=== PATIENT | male | born 1945 | race Caucasian/White ===

== ENCOUNTER 2025-01-08 00:23 | Observation (INO) | payer MEDICARE, SELFPAY ==
[2025-01-08] VITALS (26 sets, daily range): BP systolic 138–194; BP diastolic 42–99; PULSE 67–97; RESP 12–20; TEMP 36.3–37.2; O2SAT 96–100; BMI 24.3; BMI 23.3
--- NOTE | 2025-01-08 | XR_ITS ---
MRI abdomen, without contrast. MRCP Date and time of exam: January 08, 2025 at 12:28 PM INDICATIONS: Abdominal pain elevated lipase mid abdominal pain beginning 3 days ago Technique: Multiple axial and coronal images of the abdomen have been obtained with the Siemens 1.5T MRI scanner. Images obtained included T1 weighted transverse images, T2-weighted transverse images, T2-weighted transverse images fat-suppressed, T2 weighted haste fat suppressed transverse images, T1 weighted images, in and out of phase images, T2-weighted coronal images, breath hold, T2 weighted haze coronal images as well as T2 weighted coronal thick slab images, MRCP. Findings: No intrahepatic biliary tract dilatation No gallstones Gallbladder wall is not thickened Normal common hepatic duct common bile duct no stones Pancreatic duct is not dilated No peripancreatic mass Spleen is not enlarged No ascites Aorta normal size 20 mm calculus in the left renal pelvis with minimal left hydronephrosis IMPRESSION: Negative for cholelithiasis, negative for cholecystitis Normal common hepatic common bile duct Negative for pancreatitis 20 mm calculus in the left renal pelvis with minimal left hydronephrosis
--- NOTE | 2025-01-08 01:18 | PD.EDRME ---
Rapid Medical Screening Exam RME Arrival date/time: 01/08/25 00:23 Time Seen by Provider: 01/08/25 00:47 Vital signs: Vital Signs Temperature 97.7 F 01/08/25 00:30 Pulse Rate 97 01/08/25 00:30 Respiratory Rate 20 01/08/25 00:30 Blood Pressure 194/82 H 01/08/25 00:30 Pulse Oximetry (%) 96 01/08/25 00:30 Oxygen Delivery Method Nasal Cannula 01/08/25 00:30 Oxygen Flow Rate 5 01/08/25 00:30 Vital signs reviewed by provider: Yes RME Narrative: 79 yo with with chest pain that started 5 hours prior to arrival. A medical screening exam has been performed on this patient. Labs will be sent EKG and chest x-ray will be ordered. A ED provider will make a final evaluation follow her labs and disposition for this patient.
--- NOTE | 2025-01-08 01:59 | EKG_ITS ---
[facility] Test Date: 2025-01-08 Pat Name: SHAKILA PATTEN Department: Room: - Gender: Male [employer]: : 1945 Requested By: Jaci Dudley Order Number: [id number] Reading MD: Jaci Dudley Measurements Intervals [place] Rate: 91 P: 46 NM: 160 QRS: 16 QRSD: 89 T: -2 QT: 358 QTc: 441 Interpretive Statements SINUS RHYTHM MODERATE ST DEPRESSION [0.05+ mV ST DEPRESSION] No previous ECG available for comparison /store/S0/[id number].pdf
--- NOTE | 2025-01-08 02:00 | XR_ITS ---
Examination: CT abdomen with intravenous contrast CT pelvis with intravenous contrast 2-D coronal reconstructions 2-D sagittal reconstructions Date and time of exam:January 08 70,025, 0416 hours INDICATIONS: Onset abdominal pain today.. CTDI: vol (mGy) 9.82. DLP: (mGycm) 577. Technique: Multiple axial sections of the abdomen and pelvis have been obtained. 64 slice high-resolution scanner used. 3 mm axial sections have been obtained, post intravenous injection of 60 cc Isovue-370. 2-D sagittal, coronal reconstructions obtained. Low dose protocols were performed. One or more of the following dose reduction techniques were used; automated exposure control, adjustment of the mA and/or KV according to patient size, use of iterative reconstruction technique. Findings: Atelectasis versus pneumonia both lung bases Retrocardiac gastric hernia Liver cysts Distended gallbladder 21 mm calculus in the left renal pelvis with minimal left hydronephrosis Moderate renal parenchymal scar formation No bowel obstruction Small calculi in the urinary bladder Mild prostatomegaly Severe osteopenia with chronic compression T12 Small fat-containing left inguinal hernia IMPRESSION: 21 mm calculus in the left renal pelvis with minimal left hydronephrosis
--- NOTE | 2025-01-08 02:01 | XR_ITS ---
Examination: AP chest single view TECHNIQUE: AP portable semiupright chest single view Date and time: January 08, 2025 0215 hours Comparison April 10, 2021 INDICATIONS: Abdominal pain today. FINDINGS: Scarring versus pneumonia left base Right lung clear Mild prominence left ventricle Prominent osteopenia IMPRESSION: Scarring versus pneumonia left base, clinical correlation advised
--- NOTE | 2025-01-08 03:14 | PC.NURSE ---
WE HAD DOWN TIME FROM [id number].
[2025-01-08 03:31] LABS: Alanine Aminotransferase 17 U/L (10-49); Albumin, Serum 3.9 gm/dL (3.4-4.8); Albumin/Globulin Ratio 1.6 (1.2-2.2); Alkaline Phosphatase 69 U/L (46-116); Anion Gap 7 (7-16); BUN/Creatinine Ratio 19 Ratio (12-20); Bilirubin,Total 1.8 mg/dL (0.3-1.2); Blood Urea Nitrogen 19 mg/dL (9-23); Calcium 8.8 mg/dL (8.3-10.6); Calcium (Corrected) 8.9 mg/dL (8.5-10.1); Carbon Dioxide 25.0 mMol/L (20.0-31.0); Chloride 107 mMol/L (98-107); Creatinine (Component) 1.0 mg/dL (0.6-1.3); Estimated Creatinine Clearance 59.9 mL/min (>60); Globulin 2.5 gm/dL (2.3-3.5); Glucose 116 mg/dL (74-106); Lipase 318 U/L (12-53); Magnesium 1.8 mg/dL (1.6-2.6); Osmolality,Calculated 280 (275-295); Potassium 4.1 mMol/L (3.4-5.1); Sodium 139 mMol/L (136-145); Total Protein 6.4 gm/dL (5.7-8.2); Troponin I < 0.020 ng/mL (0.0-0.045); eGFR > 60 See Note
[2025-01-08 03:37] LABS: Basophils # (Auto) 0.1 Thou/mm3 (0.0-0.2); Basophils % (Auto) 0 % (0-2.5); Eosinophils # (Auto) 0.1 Thou/mm3 (0.0-0.5); Eosinophils % (Auto) 1 % (0-10); Hematocrit 47.7 % (41.0-53.0); Hemoglobin 16.7 g/dL (13.5-16.0); Immature Granulocytes Auto 0.07 Thou/mm3 (0.00-0.00); Lymphocytes # (Auto) 0.8 Thou/mm3 (1.0-4.8); Lymphocytes % (Auto) 7 % (10-50); Mean Corpuscular HGB Conc 35.0 g/dl (31.0-37.0); Mean Corpuscular Hemoglobin 29.7 pg (25.0-35.0); Mean Corpuscular Volume 85 fL (80-100); Monocytes # (Auto) 1.0 Thou/mm3 (0.0-0.8); Monocytes % (Auto) 8 % (0-12); Neutrophils # (Auto) 9.8 Thou/mm3 (1.8-7.7); Neutrophils % (Auto) 83 % (37-80); Nucleated Red Blood Cell # 0.00 Thou/mm3 (0.00-0.00); Nucleated Red Blood Cell % 0 /100 WBC (0); Platelet Count 192 Thou/mm3 (140-440); RDW Standard Deviation 41.9 fL (35.1-43.9); Red Blood Count 5.62 Miln/mm3 (4.50-5.90); White Blood Count 11.9 Thou/mm3 (3.8-10.6)
[2025-01-08 03:52] LABS: INR 1.0 (0.9-1.3); Partial Thromboplastin Time 31.1 Seconds (22.0-36.0); Prothrombin Time 11.4 Seconds (9.0-12.2)
[2025-01-08 03:59] LABS: B-Type Natriuretic Peptide < 20 pg/mL (0-100)
[2025-01-08] MEDS: ONDANSETRON INJ 2 MG/ML INJ 2 ML 4 MG IVP (04:04)
[2025-01-08 04:16] LABS: Aspartate Amino Transferase 101 U/L (0-34)
[2025-01-08 05:02] LABS: Collection Type, Urine Voided; Squamous Epithelial Cell,Urine 0 /hpf (0-5)
[2025-01-08 05:26] LABS: Bilirubin,Urine Negative (Negative); Blood,Urine 1+ (Negative); Clarity,Urine Clear (Clear/Hazy); Color,Urine Yellow (Lt Yel-Yel); Glucose, Urine Negative (Negative); Hyaline Casts,Urine < 1 /hpf (0-1); Ketones,Urine Trace (Negative); Leukocyte Esterase,Urine Positive (Negative); Nitrite,Urine Negative (Negative); PH,Urine 6.5 (5.0-7.0); Protein,Urine 1+ (Neg - Trace); RBC,Urine 53 /hpf (0-3); Specific Gravity,Urine 1.017 (1.001-1.035); Urobilinogen,Urine Negative mg/dL (0.0-1.0); WBC,Urine 41 /hpf (0-5)
--- NOTE | 2025-01-08 05:34 | PRELIM_ITS ---
CT scan of the abdomen and pelvis with intravenous contrast (axial sections with sagittal and coronal reformats). January 08, 2025 0416 hours Clinical History: 79-year-old with abdominal pain Comparison: No prior CT. Findings: Few scattered cystlike hypodensities noted within the liver. The gallbladder is mildly distended. The spleen, pancreas and adrenals are unremarkable. There is nonspecific bilateral perinephric stranding. There is a 2.1 cm obstructing calculus within the left renal pelvis with mild left hydronephrosis. Tiny nonobstructive nephrolith noted within the upper pole of the right kidney. Few tiny cortical cystlike hypodensities noted in the right kidney. There is lobular contour of the kidneys suggested scarring either from prior infection or prior ischemia. Urinary bladder is of normal partially filled configuration. There is some dependent intraluminal calcification/calculi within the urinary bl adder. Prostate is not enlarged. There are pelvic fluids. There is a large hiatus hernia with layering fluid within the hiatus hernia as well as within the distal esophagus. There is also layering fluid within the stomach. There is no bowel obstruction. Appendix is normal. There is no free intraperitoneal air or fluid. There is no abdominal or pelvic lymphadenopathy. There are vascular calcifications along the abdominal aorta and branch vessels. Small fat- containing left inguinal hernia suggested. There are coronary artery calcifications. There is bibasilar subsegmental atelectasis. There is osteopenia but there is no acute osseous abnormal. There is old severe T12 compression fracture. Impression: 1. 2.1 cm obstructing calculus within the left renal pelvis with mild left hydronephrosis.. Superimposed infectious pyelitis is not excluded. 2. Lobular contour of the kidney suggesting scarring either from prior infection or prior ischemia. 3. Dependent intraluminal calcification/calculi within the urinary bladder. 4. Large hiatus hernia. Distended fluid-filled distal esophagus. 5. Small fat-containing left inguinal hernia. 6. Old severe T12 compression fracture. Report Electronically Signed By: Homer Wray 01/08/2025 5:33:33 AM [EST]
--- NOTE | 2025-01-08 06:24 | PC.NURSE ---
new linen change. vs taken. assisted pt with urinal.
--- NOTE | 2025-01-08 07:07 | EDNOTE_ITS ---
ED Abdominal Pain RME/HPI General Chief Complaint: Abdominal Pain Stated complaint: ABDOMINAL PAIN Time seen by provider: 01/08/25 00:47 Arrival date/time: 01/08/25 00:23 RME / HPI RME / HPI narrative: 79 yo with with chest pain that started 5 hours prior to arrival. A medical screening exam has been performed on this patient. Labs will be sent EKG and chest x-ray will be ordered. A ED provider will make a final evaluation follow her labs and disposition for this patient. DR. AMAYA MAIN ED EVALUATION 79 year old male patient with history of Parkinson's disease and hypertension presents to the ED BIBA from home for evaluation of abdominal pain beginning last night. Described as sharp stabbing in sensation, localized to the epigastric and umbilical region, without radiation. Rating 8/10 in severity. Additionally complains of a mild cough. Denies fevers, chills, sweats. Denies chest pain or shortness of breath. Denies nausea, vomiting, diarrhea, constipation. Denies dysuria, urinary frequency and urgency. Related Data Home Medications ?Medication ?Instructions ?Recorded ?Confirmed atenolol 50 mg tablet (Tenormin) 50 mg PO QAM #0 tabs 12/13/16 06/09/19 tramadol 50 mg tablet (Ultram) 50 mg PO Q4HR PRN PAIN #0 tabs 12/13/16 06/09/19 Previous Rx's ?Medication ?Instructions ?Recorded acetaminophen 300 mg-codeine 30 mg 1 tab PO TID PRN pa in #21 tabs 04/10/21 tablet lidocaine 5 % topical patch 1 patch topical QDAY #15 e a 04/10/21 hydrocodone 5 mg-acetaminophen 325 1 tab PO Q8H PRN pa in #14 tabs 04/17/23 mg tablet Allergies Allergy/AdvReac Type Severity Reaction Status Date / Time NKA* Allergy Uncoded 12/16/16 20:51 Review of Systems Review of Systems Systems Reviewed: All systems reviewed, normal except as documented Past Medical History Past Medical History NEUROLOGIC: Positive Neurological Disorders CARDIAC: Positive Hypertension; Negative Cardiac Disorders or Congestive Heart Failure RESPIRATORY: Positive Asthma; Negative Chronic Obstructive Pulmonary Disease (COPD) GENITOURINARY: Positive Renal Disease ENDOCRINE: Negative Diabetes Mellitus Type 1 or Diabetes Mellitus Type 2 HEMATOLOGIC: Negative Sickle Cell Disease Social History SMOKING STATUS: Never smoker SUBSTANCE USE: does not use ED Exam Narrative Physical exam: GENERAL APPEARANCE: alert and oriented x 4, well-developed, well-nourished, no acute distress HEENT: Normocephalic, atraumatic; pupils equal, round, reactive to light; EOMI; mucous membranes pink, moist; oropharynx clear NECK: Supple LUNGS: CTABL; no wheezes, no rales, no rhonchi HEART: Regular rate, regular rhythm; normal S1, S2; no murmurs ABDOMEN: mild distended; normal BS; soft, no tenderness, no guarding, no rebound; no masses, no organomegaly, no hernia BACK: no CVA tenderness EXTREMITIES: atraumatic; no edema NEUROLOGIC: awake; alert and oriented x4; cranial nerves II-XII grossly intact; no focal sensory or motor deficits PSYCHIATRIC: appropriate mood and affect SKIN: warm, dry, normal color; no rashes Course Quality Measures none Orders Category Date Time Status CT Screening NOW Care 01/08/25 02:00 Active EKG (ED ONLY) *Do not use* NOW Care 01/08/25 01:59 Completed Insert IV STAT Care 01/08/25 01:59 Active MRI Screening NOW Care 01/08/25 08:06 Active Referral - Screw Machine Set Up Operator Tool Stat Cons 01/08/25 14:29 Active Diet Regular Diet 01/08/[address] abdomen pelvis w con Stat Exams 01/08/25 02:00 Completed CXRP [XR chest 1V portable] Stat Exams 01/08/25 02:01 Completed EKG (ED Only) Stat Exams 01/08/25 01:59 Draft MR MRCP Stat Exams 01/08/25 Completed BNP [B-Type Natriuretic Peptide] Stat Lab 01/08/25 02:14 Completed CBC Stat Lab 01/08/25 02:14 Completed COVID-19 Antigen (In-House) Stat Lab 01/08/25 Ordered Comprehensive Metabolic Panel Stat Lab 01/08/25 02:14 Completed Lipase Stat Lab 01/08/25 02:14 Completed Magnesium Stat Lab 01/08/25 02:14 Completed Partial Thromboplastin Time Stat Lab 01/08/25 02:14 Completed Prothrombin Time with INR Stat Lab 01/08/25 02:14 Completed Troponin I Stat Lab 01/08/25 02:14 Completed Urinalysis Stat Lab 01/08/25 04:00 Completed Ondansetron Inj [Zofran Inj] Med 01/08/25 01:59 Active 4 mg IVP Q1H PRN Piper/Tazo 3.375 gm Premix [Zosyn] Med 01/08/25 08:06 Discontinued 3.375 gm in 50 ml IV X1 Reevaluation(s) Reevaluation #1: Patient reports his pain has improved. Time: 07:08 Vital Signs Vital signs: Vital Signs Temperature 97.7 F 01/08/25 00:30 Pulse Rate 97 01/08/25 00:30 Respiratory Rate 20 01/08/25 00:30 Blood Pressure 194/82 H 01/08/25 00:30 Pulse Oximetry (%) 96 01/08/25 00:30 Oxygen Delivery Method Nasal Cannula 01/08/25 00:30 Oxygen Flow Rate 5 01/08/25 00:30 Abdominal Pain MDM MDM Narrative MDM Narrative:: Carmen Masters am scribing for and in the presence of Dr. Amaya. 1800: Patient signed out to Dr. Ortiz pending transfer for urology services. Patient data External records reviewed:: [facility] previous records (I reviewed ED visit on 04/16/2023 ) and EMS form Clinical information provided by:: patient Social determinants that could affect healthcare access:: none Patient has the following chronic illnesses:: Parkinson's disease and hypertension How is presenting disease/condition affected by chronic disease/condition?: uneffected by Evaluation data The following diagnostics were reviewed and interpreted by me:: lab results, radiology exam(s) and EKG tracing(s) (01/08/2025 @ 03:40 AM. Sinus rhythm, rate 91, no acute ischemic changes. ) Lab and/or radiology exams considered but not ordered:: None Interpretation Summary: Ordering Physician: Jaci Ortiz MD Date of Service: 01/08/25 Procedure(s): CT abdomen pelvis w con Accession Number(s): [id number] cc: Ranulfo Portillo MD; NO PRIMARY/FAMILY,PHYSICIAN; Jaci Ortiz MD~ Examination: CT abdomen with intravenous contrast CT pelvis with intravenous contrast 2-D coronal reconstructions 2-D sagittal reconstructions Date and time of exam:January 08 70,025, 0416 hours INDICATIONS: Onset abdominal pain today.. CTDI: vol (mGy) 9.82. DLP: (mGycm) 577. Technique: Multiple axial sections of the abdomen and pelvis have been obtained. 64 slice high-resolution scanner used. 3 mm axial sections have been obtained, post intravenous injection of 60 cc Isovue-370. 2-D sagittal, coronal reconstructions obtained. Low dose protocols were performed. One or more of the following dose reduction techniques were used; automated exposure control, adjustment of the mA and/or KV according to patient size, use of iterative reconstruction technique. Findings: Atelectasis versus pneumonia both lung bases Retrocardiac gastric hernia Liver cysts Distended gallbladder 21 mm calculus in the left renal pelvis with minimal left hydronephrosis Moderate renal parenchymal scar formation No bowel obstruction Small calculi in the urinary bladder Mild prostatomegaly Severe osteopenia with chronic compression T12 Small fat-containing left inguinal hernia IMPRESSION: 21 mm calculus in the left renal pelvis with minimal left hydronephrosis Dictated By: Ranulfo Portillo MD Signed By: <Electronically signed by Ranulfo Portillo MD in OV>01/08/25 0754 Ordering Physician: Philly Amaya MD Date of Service: 01/08/25 Procedure(s): MR MRCP Accession Number(s): [id number] cc: Ranulfo Portillo MD; NO PRIMARY/FAMILY,PHYSICIAN; Philly Amaya MD~ MRI abdomen, without contrast. MRCP Date and time of exam: January 08, 2025 at 12:28 PM INDICATIONS: Abdominal pain elevated lipase mid abdominal pain beginning 3 days ago Technique: Multiple axial and coronal images of the abdomen have been obtained with the Siemens 1.5T MRI scanner. Images obtained included T1 weighted transverse images, T2-weighted transverse images, T2-weighted transverse images fat-suppressed, T2 weighted haste fat suppressed transverse images, T1 weighted images, in and out of phase images, T2-weighted coronal images, breath hold, T2 weighted haze coronal images as well as T2 weighted coronal thick slab images, MRCP. Findings: No intrahepatic biliary tract dilatation No gallstones Gallbladder wall is not thickened Normal common hepatic duct common bile duct no stones Pancreatic duct is not dilated No peripancreatic mass Spleen is not enlarged No ascites Aorta normal size 20 mm calculus in the left renal pelvis with minimal left hydronephrosis IMPRESSION: Negative for cholelithiasis, negative for cholecystitis Normal common hepatic common bile duct Negative for pancreatitis 20 mm calculus in the left renal pelvis with minimal left hydronephrosis Dictated By: Ranulfo Portillo MD Signed By: <Electronically signed by Ranulfo Portillo MD in OV>01/08/25 1317 ======= ===== Ordering Physician: Jaci Ortiz MD Date of Service: 01/08/25 Procedure(s): XR chest 1V portable Accession Number(s): [id number] cc: Ranulfo Portillo MD; NO PRIMARY/FAMILY,PHYSICIAN; Jaci Ortiz MD~ Examination: AP chest single view TECHNIQUE: AP portable semiupright chest single view Date and time: January 08, 2025 0215 hours Comparison April 10, 2021 INDICATIONS: Abdominal pain today. FINDINGS: Scarring versus pneumonia left base Right lung clear Mild prominence left ventricle Prominent osteopenia IMPRESSION: Scarring versus pneumonia left base, clinical correlation advised Dictated By: Ranulfo Portillo MD Signed By: <Electronically signed by Ranulfo Portillo MD in OV> 01/08/25 0922 Medications / Prescriptions Medications or Prescriptions considered but not ordered:: None Medication administrations:: Medication Administration History Ondansetron HCl (Ondansetron Inj 2 Mg/Ml Inj 2 Ml) 4 mg IVP Q1H PRN PRN Reason: PERSISTENT NAUSEA OR VOMITING Last Admin: 01/08/25 04:04 Dose: 4 mg Documented By: SM Discontinued Medications Piperacillin/Tazobactam/Dextrose (Zosyn) 3.375 gm in 50 mls @ 100 mls/hr IV X1 ONE Stop: 01/08/25 08:35 Last Infusion: 01/08/25 08:47 Dose: Infused Documented By: Admin: 01/08/25 08:17 Dose: 100 mls/hr Documented By: ER See above Consultations Consultation(s) initiated? (list below): No Diagnosis Differential diagnosis abdominal pain: abdominal pain, calculus of kidney, constipation, diverticulitis, gastroenteritis and pancreatitis Most likely diagnosis given after review of the tests above:: Left renal pelvis calculus Left hydronephrosis Admission Indicated Admission indicated?: not indicated Explain why admission is indicated or not indicated:: Patient signed out pending final disposition. Admission Request Was there a request for admission?: No Disposition Plan Disposition Plan: other (specify) (Patient signed out to Dr. Ortiz pending transfer for urology services. ) Discharge Plan Prescriptions/Referrals Prescriptions/Med Rec: No Action tramadol [Ultram] 50 MG tablet 50 mg PO Q4HR PRN (Reason: PAIN) Qty: 0 Patient Comments: FOR PAIN, NOT TO EXCEED 8 TABS IN 24 HRS atenolol [Tenormin] 50 MG tablet 50 mg PO QAM Qty: 0 acetaminophen-codeine 300-30 mg tablet 1 tab PO TID PRN (Reason: pain) Qty: 21 0RF lidocaine 5 % adhesive patch,medicated 1 patch topical QDAY Qty: 15 0RF Rx Instructions: leave on most painful area for up to 12 hrs hydrocodone-acetaminophen 5-325 mg tablet 1 tab PO Q8H MDD 3 tabs PRN (Reason: pain) Qty: 14 0RF Referrals: No Primary/Family,Physician [Primary Care Provider] - In 1 week Problem List Clinical Impression: Hydronephrosis, left, Stone in renal pelvis Patient/Caregiver Discharge Instructions Print Language: [place]
--- NOTE | 2025-01-08 07:40 | PC.NURSE ---
Patient awake A&O X3, denies pain or discomfort at this time. POC updated.
[2025-01-08] MEDS: PIPER/TAZO 3.375 GM PREMIX 3.375 GM/50 ML BAG IV (08:17)
--- NOTE | 2025-01-08 15:54 | PC.CM ---
Addendum entered by Demetria Bowman RN 01/08/25 18:46: 1945 [facility] transfer nurse Guillermina called me and she wanted to seak to Dr. Holloway. I transferred call to ED. Addendum entered by Demetria Bowman RN 01/08/25 18:40: I sent information to [facility]. Addendum entered by Demetria Bowman RN 01/08/25 18:29: [facility]15 [facility] Transfer nurse states they are still working on the transfer. Please disregard entry at 1645. Wrong patient. Addendum entered by Demetria Bowman RN 01/08/25 16:53: 1645 Mingo GONZALEZ called and wanted to know what was going on with patient. I let him know [facility] [place] is reviewing patient at this time. Addendum entered by Demetria Bowman RN 01/08/25 16:45: 1620 I received a call back from Guillermina arceo form [facility]. She took a complete report from me on patient. She states they will review everything and get back to us. Addendum entered by Demetria Bowman RN 01/08/25 16:27: 1550 I spoke to the transfer center at [facility] and we discussed need for transfer. She took information on patient and she stats she will have a nurse call back for more information. Original Note: 1530 I faxed information to [facility] in [place]. I started packet and I will made a CD. 1500 I received a referral to transfer patient for urology services.
--- NOTE | 2025-01-08 16:27 | PC.NURSE ---
POC updated patient denies pain at this time.
--- NOTE | 2025-01-08 17:59 | EDNOTE_ITS ---
Emergency Room Addendum <Jaci Ortiz MD - Last Filed: 01/08/25 20:08> Addendum Narrative: [address] Amaya (emergency physician). Past medical, surgical, social and family history reviewed. Vitals and home medications reviewed. Results and treatment plan discussed. I will assume the care of the patient at this time and will follow the patient, pending transfer for urology services. Please refer to the emergency department record for history and examination from initial visit. 1814: At signout the patient was still pending a call from [facility]. The patient wanted something to eat and we gave him a trial and he started having abdominal pain. Repeat abdominal exam shows no rebound. Morphine is given. The call came in from Dr. Whyte, urology from [facility], ([phone]. This is his outpatient office number). They feel that the patient does not need urological transfer and/or intervention while in the hospital. The patient does not need to be transferred. He reports that the patient can be seen as an outpatient. The patient needs to call the office number and get seen for an outpatient referral. Discussed with Dr. Wayne who will let the 7 PM doctor know that the patient can be admitted. Dr. Ortiz?s Main ED Evaluation: 79-year-old male with a history of Parkinson?s disease and hypertension was signed out to me for continued evaluation and management of acute-onset abdominal pain. He presented from home via EMS with pain described as sharp and stabbing, localized to the epigastric and periumbilical regions, rated 8/10 in intensity, and non-radiating. He also endorsed a mild non-productive cough but denied fevers, chills, chest pain, shortness of breath, nausea, vomiting, diarrhea, constipation, or urinary symptoms. On reassessment, patient remained hemodynamically stable and nontoxic-appearing. Pain was unchanged. Evaluation data The following diagnostics were reviewed and interpreted by me: radiology exam(s) Interpretation Summary: I personally reviewed the radiology results and agree with the radiologist?s interpretation #CT Abdomen/Pelvis with IV Contrast (01/08/25 at 0416 hrs): Findings: Atelectasis versus pneumonia both lung bases Retrocardiac gastric hernia Liver cysts Distended gallbladder 21 mm calculus in the left renal pelvis with minimal left hydronephrosis Moderate renal parenchymal scar formation No bowel obstruction Small calculi in the urinary bladder Mild prostatomegaly Severe osteopenia with chronic compression T12 Small fat-containing left inguinal hernia IMPRESSION: 21 mm calculus in the left renal pelvis with minimal left hydronephrosis #MRCP (01/08/25 at 1228 hrs): Findings: No intrahepatic biliary tract dilatation No gallstones Gallbladder wall is not thickened Normal common hepatic duct common bile duct no stones Pancreatic duct is not dilated No peripancreatic mass Spleen is not enlarged No ascites Aorta normal size 20 mm calculus in the left renal pelvis with minimal left hydronephrosis IMPRESSION: Negative for cholelithiasis, negative for cholecystitis Normal common hepatic common bile duct Negative for pancreatitis 20 mm calculus in the left renal pelvis with minimal left hydronephrosis #Chest X-ray, 1V Portable (01/08/25 at 0215 hrs): FINDINGS: Scarring versus pneumonia left base Right lung clear Mild prominence left ventricle Prominent osteopenia IMPRESSION: Scarring versus pneumonia left base, clinical correlation advised <Josee Danya - Last Filed: 01/08/25 20:45> Addendum Narrative: [address] Amaya (emergency physician). Past medical, surgical, social and family history reviewed. Vitals and home medications reviewed. Results and treatment plan discussed. I will assume the care of the patient at this time and will follow the patient, pending transfer for urology services. Please refer to the emergency department record for history and examination from initial visit. 5: At signout the patient was still pending a call from [facility]. The patient wanted something to eat and we gave him a trial and he started having abdominal pain. Repeat abdominal exam shows no rebound. Morphine is given. The call came in from Dr. Whyte, urology from [facility], #[phone] (this is his outpatient office number). They feel that the patient does not need urological transfer and/or intervention while in the hospital. The patient does not need to be transferred. He reports that the patient can be seen as an outpatient. The patient needs to call the office number and get seen for an outpatient referral. Discussed with Dr. Wayne who will let the 7PM doctor know that the patient can be admitted. Re-evaluation: 79-year-old male with a history of Parkinson?s disease and hypertension was signed out to me for continued evaluation and management of acute-onset abdominal pain. He presented from home via EMS with pain described as sharp and stabbing, localized to the epigastric and periumbilical regions, rated 8/10 in intensity, and non-radiating. He also endorsed a mild non-productive cough but denied fevers, chills, chest pain, shortness of breath, nausea, vomiting, diarrhea, constipation, or urinary symptoms. On reassessment, patient remained hemodynamically stable and nontoxic-appearing. Pain was unchanged. Evaluation data The following diagnostics were reviewed and interpreted by me: radiology exam(s) Interpretation Summary: I personally reviewed the radiology results and agree with the radiologist?s interpretation #CT Abdomen/Pelvis with IV Contrast (01/08/25 at 0416 hrs): Findings: Atelectasis versus pneumonia both lung bases Retrocardiac gastric hernia Liver cysts Distended gallbladder 21 mm calculus in the left renal pelvis with minimal left hydronephrosis Moderate renal parenchymal scar formation No bowel obstruction Small calculi in the urinary bladder Mild prostatomegaly Severe osteopenia with chronic compression T12 Small fat-containing left inguinal hernia IMPRESSION: 21 mm calculus in the left renal pelvis with minimal left hydronephrosis #MRCP (01/08/25 at 1228 hrs): Findings: No intrahepatic biliary tract dilatation No gallstones Gallbladder wall is not thickened Normal common hepatic duct common bile duct no stones Pancreatic duct is not dilated No peripancreatic mass Spleen is not enlarged No ascites Aorta normal size 20 mm calculus in the left renal pelvis with minimal left hydronephrosis IMPRESSION: Negative for cholelithiasis, negative for cholecystitis Normal common hepatic common bile duct Negative for pancreatitis 20 mm calculus in the left renal pelvis with minimal left hydronephrosis #Chest X-ray, 1V Portable (01/08/25 at 0215 hrs): FINDINGS: Scarring versus pneumonia left base Right lung clear Mild prominence left ventricle Prominent osteopenia IMPRESSION: Scarring versus pneumonia left base, clinical correlation advised Attestation <Rigoberto Hagan - Last Filed: 01/08/25 20:45> Attestation Scribe Attestation: I, Obi Hagan, am scribing for and in the presence of Dr. Ortiz. Provider Notation: Although this document has been carefully reviewed, there may still be some phonetic and other typographical errors. These errors are purely grammatical due to imperfections in the software program and should not be construed in any way to compromise the substance of the patient's medical care during this visit.
--- NOTE | 2025-01-08 20:05 | PD.RESHP ---
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 Patient's is also bedside and provides some history regarding the patient's condition. Patient was apparently scheduled for PASSENGER [employer]GE [employer] shunt modification on 01/09 send however, started developing abdominal pain radiating to his flank area this morning which prompted him to come to the emergency room. Patient denies any fever/chills, diarrhea, vomiting, nausea, chest pain or shortness of breath. Patient denies any recent sick contacts, travel or any other concerning symptoms at this time. Medical history: As stated above Surgical history: Medication placement Allergies: NKDA Medications: Atenolol which he apparently takes when needed, carbidopa-levodopa, methocarbamol Family history: Noncontributory Social history: Patient lives with his , currently mostly bedbound, denies any alcohol, illicit drug or tobacco use. ROS: All 12 systems assessed and the patient denies unless otherwise stated in HPI. In the ED, patient presented hypertensive blood pressure 194/82, mildly tachycardic with a heart rate 97, initially requiring 5 L nasal cannula but is now currently on room air satting 96. Pertinent lab findings included WBC 11.9, hemoglobin 16.7 with MCV of 85, magnesium 1.8, T. bili 1.8, AST 101, troponin within normal limits, BNP less than 20, lipase of 318, urinalysis showed no signs of bacteria. MRCP was negative for cholelithiasis, cholecystitis, normal common hepatic, common bile duct, negative for pancreatitis but there was noted 20 mm calculus in the left renal pelvis with minimal left hydronephrosis, CT abdomen confirmed findings, chest x-ray showed scarring versus pneumonia in the left base and EKG showed sinus rhythm with no concerning ST changes noted. Patient will be admitted for IV fluid resuscitation and pain management for minimally obstructing 20 mm calculus in the left renal pelvis with urology consultation for further management. Exam Vital Signs Temp Pulse Resp BP Pulse Ox O2 Del Method O2 Flow Rate 98.9 F 79 12 161/72 H 96 Room Air 2 01/08/25 19:00 01/08/25 19:00 01/08/25 19:00 01/08/25 19:00 01/08/25 19:00 01/08/25 19:00 01/08/25 16:00 Narrative Exam Physical Exam: GENERAL: Awake, answering questions appropriately but slowly, appears stated age HEENT: NC/AT. Moist mucosa. PERRLA/EOMI. CARDIO: Heart RRR, no obvious murmurs, no JVD. PULM: No coughing or visible SOB. Lungs CTA B/L. GI: Abdomen soft, mildly tender to palpation in the right upper quadrant otherwise unremarkable, no guarding or rebound tenderness. Bowel sounds noted SKIN/MSK/EXT: No wounds/discoloration/rashes/edema/amputations. +Pedal pulses present B/L. NEURO: Oriented x3, Moves extremities x4 with slight rigidity and bradykinesia, no focal neurologic deficits noted Results: Labs 01/08/25 02:14 01/08/25 02:14 Labs: Short CBC 01/08/25 Range/Units 02:14 WBC 11.9 H (3.8-10.6) Thou/mm3 Hgb 16.7 H (13.5-16.0) g/dL Hct 47.7 (41.0-53.0) % Plt Count 192 (140-440) Thou/mm3 BMP 01/08/25 02:14 Sodium 139 Potassium 4.1 Chloride 107 Carbon Dioxide 25.0 BUN 19 Creatinine 1.0 Glucose 116 H Calcium 8.8 Cardiac Enzymes 01/08/25 Range/Units 02:14 Troponin I < 0.020 (0.0-0.045) ng/mL Liver Function 01/08/25 Range/Units 02:14 Total Bilirubin 1.8 H (0.3-1.2) mg/dL AST 101 H (0-34) U/L ALT 17 (10-49) U/L Alkaline Phosphatase 69 (46-116) U/L Albumin 3.9 (3.4-4.8) gm/dL Urine 01/08/25 Range/Units 04:00 Urine Color Yellow (Lt Yel-Yel) Urine Clarity Clear (Clear/Hazy) Urine pH 6.5 (5.0-7.0) Ur Specific [place] 1.017 (1.001-1.035) Urine Protein 1+ A (Neg - Trace) Urine Glucose (UA) Negative (Negative) Quality Measures Quality Measures none Advance care planning discussed with:: patient Medications Home Medications and Allergies Home Medications ?Medication ?Instructions ?Recorded ?Confirmed ?Type atenolol 50 mg tablet (Tenormin) 50 mg PO QAM #0 tabs 12/13/16 01/08/25 History atenolol 25 mg tablet 25 mg PO Q24H 01/08/25 01/08/25 History carbidopa 25 mg-levodopa 100 mg 1.5 tab PO TID tremmers 01/08/25 01/08/25 History tablet carbidopa ER 25 mg-levodopa 100 mg 1 tab PO HS 01/08/25 01/08/25 History tablet,extended release methocarbamol 500 mg tablet 1,000 mg PO HS 01/08/25 01/08/25 History omeprazole magnesium 20 mg 20 mg PO QDAY 01/08/25 01/08/25 History tablet,delayed release (Prilosec OTC) Allergies Allergy/AdvReac Type Severity Reaction Status Date / Time No Known Allergies Allergy Unverified 01/08/25 20:50 Visit Medications Ondansetron HCl (Ondansetron Inj 2 Mg/Ml Inj 2 Ml) 4 mg IVP Q1H PRN PRN Reason: PERSISTENT NAUSEA OR VOMITING Last Admin: 01/08/25 04:04 Dose: 4 mg Discontinued Medications Piperacillin/Tazobactam/Dextrose (Zosyn) 3.375 gm in 50 mls @ 100 mls/hr IV X1 ONE Stop: 01/08/25 08:35 Last Infusion: 01/08/25 08:47 Dose: Infused Assessment & Plan Plan 79-year-old male with past medical history of Parkinson's, hypertension, 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 #Left nephrolithiasis with minimal hydronephrosis As noted above, patient is presenting with 1 day of, pain radiating to the flank without any associated dysuria, hematuria, fever or chills On examination, patient does not have CVA tenderness Elevated white count likely multifocal secondary to inflammatory state along with a pneumonia as noted below MRCP was negative for cholelithiasis, cholecystitis, normal common hepatic, common bile duct, negative for pancreatitis but there was noted 20 mm calculus in the left renal pelvis with minimal left hydronephrosis, CT abdomen confirmed findings Plan: Gentle IV fluid resuscitation Multimodal pain management Urology consulted for recommendations regarding possible lithotripsy versus IR nephrostomy tube placement #Acute hypoxic respiratory failure secondary to pneumonia #Community-acquired pneumonia Patient does have some hypoxia noted, presented initially requiring 5 L nasal cannula but currently on room air Denies having any active shortness of breath and on examination lung sounds clear to auscultation bilaterally Chest x-ray showed scarring versus pneumonia in the left base Plan: Start patient on IV ceftriaxone 1 g daily #Elevated liver function enzymes #Hyperbilirubinemia #Elevated lipase Differentials include: MASLD, hepatitis, inflammatory state secondary to nephrolithiasis On examination, patient has mild tenderness in the right upper quadrant #Sacral wound 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 Radha Arcos, DO PGY-2 Internal Medicine - [facility] Attending Provider Attestation/Addendum 79-year-old male patient with Parkinson's disease, hypertension, CKD, sacral wound who is admitted for abdominal pain. Patient has left renal pelvis stone with mild hydronephrosis presented to urologist from OSH. Also found to have hypoxia secondary to community-acquired pneumonia. White blood count is 11,000. BUN 19 creatinine 1.0 I discussed with and supervised the resident physician who took care of this patient. I agree with the assessment and plan as above.
[2025-01-08] MEDS: SODIUM CHLORIDE 0.9% 1000 ML 1,000 ML 75 ML IV (21:48)
[2025-01-08] MEDS: cefTRIAXone/D5w 1gm IV premix 1 GM/50 ML BAG IV (21:48)
[2025-01-08] MEDS: Magnesium Sulfate 4 GM Ivpb 4 GM/50 ML BAG IV (22:11)
--- NOTE | 2025-01-08 23:00 | PC.NURSE ---
Spoke to pts [facility] and asked her to bring the Sinemer CR medication DT this medication is not available in the pyxis, MD Garcia made aware.
[2025-01-08] MEDS: hydrALAZINE INJ 20 MG/ML VIAL 10 MG IVP (23:52)
[2025-01-08] MEDS: ACETAMINOPHEN 325 MG TABLET 650 MG PO (23:52)
[2025-01-09] VITALS: BP 179/81; PULSE 77; RESP 18; TEMP 36.3; O2SAT 99
[2025-01-09 04:00] VITALS: BP 164/81; PULSE 89; RESP 20; TEMP 36.4; O2SAT 97
[2025-01-09 08:00] VITALS: BP 157/74; PULSE 91; RESP 18; TEMP 36.1; O2SAT 97
--- NOTE | 2025-01-09 08:00 | PC.NURSE ---
PATIENT REFUSE HEPARIN, SCD INITIATED, PATIENT AGREEABLE.
--- NOTE | 2025-01-09 08:56 | PC.NURSE ---
[facility] [employer] called to get report, pt needs a new order for todays procedure, dr. sauer was made aware. pt last plavix and aspirin taken 01/07 per Dari REYES at [facility].
[2025-01-09] MEDS: TAMSULOSIN HCL 0.4 MG CAPSULE PO (09:48)
--- NOTE | 2025-01-09 09:50 | PC.NURSE ---
patient refused second blood draw this morning, educated patient on importance of blood draw for further assessment. made aware.
--- NOTE | 2025-01-09 11:34 | PC.SS ---
SS met with patient regarding his d/c plan.? Pt is alert/oriented.? Pt was admitted for UTI.? Pt confirmed demographic and contact information is correct on facesheet.? Pt resides with .? Pt transfers with assistance into wheelchair.? Pt has a commode at home.? Pt requires assistance with ADLs.? cares for pt at home.? Pt is currently on 2 liters of O2.? Pt does not utilize O2 at home.? is aware for [employer] pt requires Medical.? is aware to go to Welfare office to apply for Medical.? SS provided with d/c options for home or SNF.? 's choice is for pt to return home with [facility].? explained pt had [facility] in the past and requests to continue with them.? Pt named his , Auorra Plascencia medical decision maker if he is unable.? Pt followed up with PCP 1 month ago. explained pt was recently assigned to Dr. Nash from [facility].? will provide transportation home. D/C plan:? Return home Next of Kin:? ?Aur[facility] Plascencia, , phone# [phone] PCP:? Dr. Nash from [facility] Address:? Correct on facesheet [facility]: [facility]
[2025-01-09 12:00] VITALS: BP 165/83; PULSE 95; RESP 14; TEMP 36.2; O2SAT 96
--- NOTE | 2025-01-09 13:51 | ESPR_ITS ---
<Statement entered by Art Stafford MD - 01/16/25 14:54> I reviewed above note and agree with findings and plans. I have also personally examined the patient with medicine team and went over assessment and plan with medical team including sport intern and resident physician. Documentation for date of: 01/09/25 Subjective Subjective Interval history: Patient continued to endorse 7/10 discomfort in the mid-epigastric region. Patient refused morning labsPatient continued to deny fever, chills, hematuria, dysuria, and flank pain.Urology consult completed Dr. Fernández. Recommend percutaneous nephrolithiotomy as outpatient. Exam Vital Signs Temp Pulse Resp BP Pulse Ox O2 Del Method O2 Flow Rate 97.2 F 95 14 165/83 H 96 Nasal Cannula 2 01/09/25 12:00 01/09/25 12:00 01/09/25 12:00 01/09/25 12:00 01/09/25 12:00 01/09/25 12:00 01/09/25 12:00 Narrative Exam General Appearance: Alert & Oriented X3, well-nourished male who is lying in bed in no acute distress. HEENT: Skull symmetrical and atraumatic. Conjunctivae pink and moist. Pupils equal, round, reactive to light and accommodation (PERRL). External ear without lesion or discharge. Straight, nares patient, mucosa pink, no discharge. No thyroid nodule appreciated. No cervical lymphadenopathy. Cardio: Normal Rate and Rhythm with S1 and S2 heart sounds. No murmurs or extra heart sounds auscultated. No bruits on carotid auscultation. No peripheral edema or cyanosis. Lungs: Symmetric with good expansion. Chest and back non-tender. Breath sounds vesicular without crackles, wheezing or rhonchi Abdomen: Non-tender, Non-distended, Normal Reactive Bowel Sounds Neuro: Alert, cooperative, oriented to person, place, and time. Speech clear. CN grossly intact. Upper motor strength 5/5 and Lower motor strength 5/5. Sensation intact. Objective Labs 01/08/25 02:14 01/08/25 02:14 Quality Measures Quality Measures none Advance care planning discussed with:: patient Assessment & Plan Assessment Current Active Medications: Generic Name Dose Route Start Last Admin Trade Name Freq PRN Reason Stop Dose Admin Acetaminophen 650 mg 01/08/25 20:44 01/08/25 23:52 Acetaminophen 325 Mg Tablet PO 02/07/25 20:43 650 mg Q6H PRN Administration Pain 1-3 and/or Fever >100.1 Hydrocodone Bitart/Acetaminophen 1 tab 01/08/25 20:44 01/09/25 07:44 Hydrocodone/Apap 10/325 Tab PO 01/13/25 20:43 1 tab Q4H PRN Administration PAIN SCALE 4-6 (Moderate Carbidopa/Levodopa 1 tab 01/08/25 22:00 01/08/25 22:17 Carbidopa/Levodopa Cr 25/100 Tabcr PO 02/07/25 21:59 Not Given HS DOMI Dextrose 25 ml 01/08/25 20:50 Dextrose 50%-Water Inj 50 Ml Syringe IV 02/07/25 20:49 Q15MIN PRN BG 50-70 responsive npo pt Dextrose 50 ml 01/08/25 20:50 Dextrose 50%-Water Inj 50 Ml Syringe IV 02/07/25 20:49 Q15MIN PRN BG <50 OR BG <70 & pt unresponsive Glucagon 1 mg 01/08/25 20:50 Glucagon Inj 1 Mg Vial IM Q15MIN PRN BG <70, and no IV access Heparin Sodium (Porcine) 5,000 unit 01/08/25 21:00 01/09/25 08:42 Heparin Sod Inj 5000 Unit/Ml Vial SC 01/22/25 20:59 Not Given Q12HR DOMI Hydralazine HCl 10 mg 01/08/25 23:41 01/08/25 23:52 Hydralazine Inj 20 Mg/Ml Vial IVP 02/07/25 23:44 10 mg Q6H PRN Administration SBP > 170 Ceftriaxone Sodium/Dextrose 1 gm in 50 mls @ 100 mls/hr 01/08/25 20:53 01/08/25 21:48 Rocephin/D5w 1gm Iv Premix IV 01/15/25 20:52 100 mls/hr QDAY@1400 DOMI Administration Insulin Human Lispro 0 unit 01/08/25 21:00 01/09/25 12:54 Insulin Lispro (Admelog) 1 Unit/0.01 Ml Unit SC 02/07/25 20:59 Not Given ACHS DOMI Protocol Methocarbamol 1,000 mg 01/08/25 21:00 01/08/25 22:11 Methocarbamol 500 Mg Tablet PO 02/07/25 20:59 1,000 mg HS DOMI Administration Morphine Sulfate 1 mg 01/08/25 20:44 Morphine Sulf Inj 10 Mg/Ml Vial IVP 01/13/25 20:43 Q2H PRN PAIN SCALE 7-10 (Severe Ondansetron HCl 4 mg 01/08/25 01:59 01/08/25 04:04 Ondansetron Inj 2 Mg/Ml Inj 2 Ml IVP 4 mg Q1H PRN Administration PERSISTENT NAUSEA OR VOMITING Sennosides 1 tab 01/08/25 20:44 Senna Tablet PO 02/07/25 20:43 QDAY PRN constipation Protocol Tamsulosin HCl 0.4 mg 01/09/25 09:00 01/09/25 09:48 Tamsulosin Hcl 0.4 Mg Capsule PO 02/08/25 08:59 0.4 mg QDAY DOMI Administration Plan Patient is a 79 year old male with PMHx of PD, HTN, TRANSFUSION AIDE shunt, Parkinson, and sacral wound who originally presented to the ED last night with a chief complaint of abdominal pain and was admitted overnight due to 20mm obstructive calculi in left renal pelvis with mild hydronephrosis. #Minimal Hydronephrosis secondary Nephrolithiasis #Nephrolithiasis As noted above, patient is presenting with 1 day of, pain radiating to the flank without any associated dysuria, hematuria, fever or chills On examination, patient does not have CVA tenderness Elevated white count likely multifocal secondary to inflammatory state along with a pneumonia as noted below MRCP was negative for cholelithiasis, cholecystitis, normal common hepatic, common bile duct, negative for pancreatitis but there was noted 20 mm calculus in the left renal pelvis with minimal left hydronephrosis, CT abdomen confirmed findings Plan: Gentle IV fluid resuscitation @ LR 100 Multimodal pain management Urology consulted Dr. Fernández recommendation for possible percutaneous nephrolitiotomy #Mild Acute Pancreatitis Patient with epigastric pain and pain radiating to back. Concern for acute pancreatitis, images negative. MRCP Negative and CT negative. Cardenas Score 0. Patient would like to have food and transition off NPO. Cholangiopancreatography: Negative for pancreatitis. 20mm calculus in the left renal pelvis with minimlal left hydronephrosis Lipase 318 Plan: Repeat lipid panel Repeat lipase and amylase Lactated Ringer fluid resuscitation 100 cc/hr #Acute hypoxic respiratory failure secondary to pneumonia #Community-acquired pneumonia Patient does have some hypoxia noted, presented initially requiring 5 L nasal cannula Denies having any active shortness of breath and on examination lung sounds clear to auscultation bilaterally Chest x-ray showed scarring versus pneumonia in the left base Plan: IV ceftriaxone 1 g daily (01/08/2025) #Elevated liver function enzymes #Hyperbilirubinemia #Elevated lipase Differentials include: MASLD, hepatitis, inflammatory state secondary to nephrolithiasis On examination, patient has mild tenderness in the right upper quadrant Plan -recommended patient follow up GI. 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 1.5 Carbidopa-Levodopa TID and Carbidopa-Leveodopa. #Hypertension Resume Atenolol home medication Plan -Atenolol 25 mg #Hyperglycemia Chronic medical conditions daily pending official med rec will restart home medications Plan -NO inslulin on board Health Maintenance: Lines: PIV Diet: Regular Bowel: Senna as needed GI prophylaxis: Not needed DVT prophylaxis: Subcu heparin Dispo: IV fluid resuscitation, fluid restriction, urology consultation for minimally obstructing left renal calculi Code: Full Patient seen and examined with attending Dr. Nydia Cuba PGY-2 Internal Medicine Attending Provider Attestation/Addendum 79-year-old male patient with PMHx of PD, HTN, TRANSFUSION AIDE shunt, and sacral wound who is admitted for abdominal pain. Patient has left renal pelvis stone with mild hydronephrosis. Urology consulted. Also found to have hypoxia secondary to community-acquired pneumonia. White blood count is 11,000. BUN 19 creatinine 1.0. I discussed with and supervised the resident physician who took care of this patient. I agree with the assessment and plan as above.
[2025-01-09] MEDS: cefTRIAXone/D5w 1gm IV premix 1 GM/50 ML BAG IV (14:08)
[2025-01-09 16:00] VITALS: BP 142/73; PULSE 87; RESP 16; TEMP 36.2; O2SAT 97
--- NOTE | 2025-01-09 16:37 | PC.NURSE ---
DR. REILLY MADE AWARE PATIENT AND PATIENT'S REPORTS PATIENT IS NOT DIABETIC. DOCTOR AWARE BROUGHT IN PATIENTS SINEMET BOTTLES FROM HOME, PHARMACY HAS MEDICATION BOTTLES. DR. REILLY WILL CALL PHARMACY TO CONFIRM DIRECTIONS FOR SINEMET.
--- NOTE | 2025-01-09 17:28 | ESCONSULT_ITS ---
RE: SHAKILA PATTEN : 1945 DATE OF CONSULTATION: 01/09/2025 CHIEF COMPLAINT: Abdominal pain. COMORBID CONDITIONS: 1. Hypertension. 2. Parkinsonism. 3. Status post placement of CELL MANAGER shunt placed in 2019 at [facility]. HISTORY OF PRESENT ILLNESS: This patient came to the emergency room with a history of pain in the right flank. The patient has history of stone disease for the last 20 years. No active intervention has been done. The patient has no fevers, chills, nausea, vomiting, diarrhea, chest pain or shortness of breath. MEDICAL HISTORY: As stated above. SURGICAL HISTORY: See medical placement. ALLERGY: No known allergy. MEDICATION: Atenolol taken when needed. Carbidopa-Levodopa. Methocarbamol. FAMILY HISTORY: Noncontributory. SOCIAL HISTORY: The patient lives with his , currently mostly bedbound. REVIEW OF THE SYSTEM: All system review negative except as documented. PHYSICAL EXAMINATION: Vital signs: Blood pressure is 194/82, mildly tachycardia, heart rate 97. WBC is 11.9, hemoglobin 16.7, lipase 318. The urine showed no bacteria. CT scan was done. This is reviewed by me. This revealed 3.1 cm stone with the Hounsfield unit of 1100 with minimal hydronephrosis. ASSESSMENT: 1. 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 The patient has known about it with minimal hydronephrosis. RECOMMENDATION: The patient is going to be followed in urology office. He is going to be scheduled for percutaneous nephrolithotomy. I told the patient it will be done in [place]. The patient has not decided about it. He wants to wait and think about it. I will give him followup appointment in urology office. DT: 15:17:00 TT: 17:26:00 Ref: - TID: [id number]
[2025-01-09] MEDS: CARBIDOPA/LEVODOPA 25/100 MG TABLET 1 TAB PO (18:29)
[2025-01-09] MEDS: RINGERS LACTATED 1000 ML 1,000 ML 100 ML IV (18:29)
[2025-01-09 20:00] VITALS: BP 153/70; PULSE 94; RESP 19; TEMP 36.1; O2SAT 96
[2025-01-09] MEDS: TABCR PO (20:18)
[2025-01-09] MEDS: CARBIDOPA PO (20:18)
[2025-01-09] MEDS: LEVODOPA PO (20:18)
[2025-01-10] VITALS: BP 153/80; PULSE 86; RESP 17; TEMP 35.9; O2SAT 97
[2025-01-10 04:00] VITALS: BP 175/80; PULSE 94; RESP 19; TEMP 36.2; O2SAT 93
[2025-01-10] MEDS: RINGERS LACTATED 1000 ML 1,000 ML 100 ML IV (05:29)
[2025-01-10 08:00] VITALS: BP 160/80; PULSE 94; RESP 18; TEMP 36.3; O2SAT 92
[2025-01-10] MEDS: TAMSULOSIN HCL 0.4 MG CAPSULE PO (08:14)
[2025-01-10] MEDS: CARBIDOPA/LEVODOPA 25/100 MG TABLET 1 TAB PO ×3 (08:14→14:43)
[2025-01-10] MEDS: POLYETHYLENE GLYCOL 17 GM PACKET PO (08:14)
[2025-01-10 09:08] VITALS: BP 145/90; PULSE 102
[2025-01-10 12:00] VITALS: BP 135/75; PULSE 86; RESP 18; TEMP 36.6; O2SAT 96
--- NOTE | 2025-01-10 12:53 | PC.NURSE ---
LABORATORY CALLED PATIENT REFUSED LABS THIS MORNING, DR. HEBERT EXTENSION GIVEN [phone] FOR FURTHER ORDERS.
[2025-01-10 13:40] LABS: Basophils # (Auto) 0.1 Thou/mm3 (0.0-0.2); Basophils % (Auto) 1 % (0-2.5); Eosinophils # (Auto) 0.1 Thou/mm3 (0.0-0.5); Eosinophils % (Auto) 2 % (0-10); Hematocrit 46.6 % (41.0-53.0); Hemoglobin 15.8 g/dL (13.5-16.0); Immature Granulocytes Auto 0.04 Thou/mm3 (0.00-0.00); Lymphocytes # (Auto) 1.1 Thou/mm3 (1.0-4.8); Lymphocytes % (Auto) 13 % (10-50); Mean Corpuscular HGB Conc 33.9 g/dl (31.0-37.0); Mean Corpuscular Hemoglobin 29.3 pg (25.0-35.0); Mean Corpuscular Volume 87 fL (80-100); Monocytes # (Auto) 0.7 Thou/mm3 (0.0-0.8); Monocytes % (Auto) 8 % (0-12); Neutrophils # (Auto) 6.6 Thou/mm3 (1.8-7.7); Neutrophils % (Auto) 76 % (37-80); Nucleated Red Blood Cell # 0.00 Thou/mm3 (0.00-0.00); Nucleated Red Blood Cell % 0 /100 WBC (0); Platelet Count 193 Thou/mm3 (140-440); RDW Standard Deviation 43.3 fL (35.1-43.9); Red Blood Count 5.39 Miln/mm3 (4.50-5.90); White Blood Count 8.6 Thou/mm3 (3.8-10.6)
[2025-01-10 14:16] LABS: Alanine Aminotransferase 10 U/L (10-49); Albumin, Serum 3.8 gm/dL (3.4-4.8); Albumin/Globulin Ratio 1.6 (1.2-2.2); Alkaline Phosphatase 65 U/L (46-116); Amylase 66 U/L (30-118); Anion Gap 7 (7-16); Aspartate Amino Transferase 22 U/L (0-34); BUN/Creatinine Ratio 13 Ratio (12-20); Bilirubin,Total 0.9 mg/dL (0.3-1.2); Blood Urea Nitrogen 12 mg/dL (9-23); Calcium 8.7 mg/dL (8.3-10.6); Calcium (Corrected) 8.9 mg/dL (8.5-10.1); Carbon Dioxide 28.3 mMol/L (20.0-31.0); Cardiac Risk Estimate 3.6 RATIO (4.0-6.7); Chloride 105 mMol/L (98-107); Cholesterol 147 mg/dL (132-200); Creatinine (Component) 0.9 mg/dL (0.6-1.3); Estimated Creatinine Clearance 66.5 mL/min (>60); Globulin 2.4 gm/dL (2.3-3.5); Glucose 112 mg/dL (74-106); HDL Cholesterol 41 mg/dL (40-60); LDL Cholesterol,Calculated 85 mg/dL (0-130); Lipase 32 U/L (12-53); Osmolality,Calculated 280 (275-295); Potassium 3.8 mMol/L (3.4-5.1); Sodium 140 mMol/L (136-145); Total Protein 6.2 gm/dL (5.7-8.2); Triglycerides 106 mg/dL (30-150); eGFR > 60 See Note
[2025-01-10 14:34] VITALS: BMI 23.2
[2025-01-10] MEDS: cefTRIAXone/D5w 1gm IV premix 1 GM/50 ML BAG IV (14:43)
--- NOTE | 2025-01-10 15:01 | ESDS_ITS ---
<Statement entered by rAt Stafford MD - 01/16/25 14:55> I reviewed above note and agree with findings and plans. I have also personally examined the patient with medicine team and went over assessment and plan with medical team including buyer internship and resident physician. Planned Discharge Date 01/10/25 DS: Providers Provider Date of admission: 01/08/25 19:23 Primary care physician: Physician No Primary/Family Admitting Provider: Luigi Wayne DO Attending Provider on Admission: Art Stafford MD Consults: 01/08/25 14:29 Referral - Pricing Intern Stat Service Needed for Transfer: Urology 01/08/25 20:48 Consult to Urology Routine Comment: 21 mm L renal calculi w/ minimal hydronephrosis Consulting Provider: Stephen Pavon 01/08/25 22:42 Referral Wound Care Routine Comment: Sacral Wound G2 01/09/25 15:44 Referral Nutritional Services Routine Comment: wounds Attending Provider on DC: Dion Carmichael Discharging Provider: Dion Carmichael DS: Diagnosis Problem List Completed Was Problem List Reviewed/Reconciled?: Yes Hospital Course Hospital Course Hospital course: Summary: Patient is a 79 year old male patient with a PMHx of PD, HTN, 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 Patient admitted for acute hydronephrosis secondary to kidney stone, follow out with urology. ED Course: Patient presented to the ED and endorsed 8/10 epigastric and umbilical pain without radiation. Patient denied fever, chills, N/V/D, and constipation. Patient denied flank pain, dysuria, and hematuria. Abdominal CT demonstrated 20 mm staghorn calculi obstructing the left renal pelvis with mild hydronephrosis. MRCP demonstrated normal hepatic, biliary, and pancreatic architecture. CXR demonstrated possible lung scarring vs. pneumonia. Caution was advised. EKG demonstrated sinus rhythm with no concerning ST changes. Pertinent labs include Lipase 318. Repeat Lipase noted at 38. Patient was given morphine for pain control. Hospital Course: Patient was an overnight admit for fluid resuscitation and pain management of 20 mm obstructive calculi in left renal pelvis with mild hydronephrosis. Patient was not in acute discomfort and did not exhibit tenderness on physical examination. Pertinent labs include CrCl 66.5, Lipase 32 and AST 22. Patient was on multi-modal pain management regimen, ceftriaxone 1 g IV QD for possible pneumonia, and Tamsulosin 0.4 mg PO QD for obstructive calculi management. Patient will continue at home medications upon discharge. Per urology consultation Dr. Fernández, patient can follow-up with percutaneous nephrolithiomy outpatient. Patient is stable and at a baseline. Instructions: -Tamsulosin for kidney stone -Please follow up with urology as outpatient -Please follow up with your primary care provider within one week of discharge -If your symptoms worsen,please seek immediate medical attention and return to your nearest emergency room -If you do not have a primary care provider, you may follow up at the [facility] at [address] [place] [address] [address], [place] [address], #Minimal Hydronephrosis secondary Nephrolithiasis #Nephrolithiasis #Mild Acute Pancreatitis #Acute hypoxic respiratory failure secondary to pneumonia #Community-acquired pneumonia #Elevated liver function enzymes #Hyperbilirubinemia #Elevated lipase #Sacral wound #Parkinson's #Hypertension #Hyperglycemia Case discussed with attending physician Dr. Stafford and senior resident Dr. Cuba - The patient's plan was discussed with attending Dr. Nydia Cuba MD PGY2. Internal Medicine Status at Discharge Cognitive/behavioral status at discharge: Patient is at baseline. Time Spent with Patient Time attestation: Total time spent providing and/or coordinating discharge services: Time spent: Greater than 30 minutes Quality: AMI Clinical Trial Participant: No Contraindication for Aspirin: Treatment not indicated Contraindications to PCI Procedure: Treatment not indicated Contraindication for No Fibrinolytic Therapy: Treatment not indicated Contraindication for Statin: Treatment not indicated Home Health Home Health Referral Orders: 01/10/25 14:51 Home Health Referral Routine Reason For Exam: PT Home-Bound The patient must either because of illness or injury, need the aid of supportive devices such as crutches, canes, wheelchairs, and walkers; the use of special transportation; or the assistance of another person in order to leave their place of residence; OR have a condition such that leaving his or her home is medically contraindicated. In addition, the patient also meets the following criteria: patient is normally unable to leave the home and leaving home requires considerable taxing effort. Addendum to Home Health Certification Practitioner's Certification: I certify that the patient has been under my care in the hospital and the care of attending physician (see below). We had a iypw-ps-alke encounter on (see date below). My clinical findings indicate that the patient is home bound per the above criteria and the Home Health Services noted in these orders are medically necessary. The primary reason for the [id number] encounter is related to the fact that the patient requires home health services. Date Certifying [id number]-Gfrt Physician Encounter: 01/08/25 Physician's Name who will Assume Oversight for HH Services: Physician No Primary/Family PROGRAMMER ANALYST - Community Resources: No PT to Evaluate: Yes PT to evaluate and provide a treatmnet plan to increase patient's mobility and strength. Wound Care: No IV Therapy: No RN Safety Evaluation: Yes RN to evaluate and create a plan of care that will produce positive outcomes. Palliative Treatment: No Palliative treatment and evaluate the need for hospice. Home Health Aide - Personal Care: No Home Health Aide to assist with any ADL's. Exam Vital Signs Temp Pulse Resp BP Pulse Ox O2 Del Method O2 Flow Rate 97.9 F 86 18 135/75 H 96 Nasal Cannula 3 01/10/25 12:01/10/25 12:01/10/25 12:01/10/25 12:01/10/25 12:01/10/25 12:01/10/25 12:00 Narrative Exam General Appearance: Alert & Oriented X3, well-nourished male who is lying in bed in no acute distress. HEENT: Skull symmetrical and atraumatic. Conjunctivae pink and moist. Pupils equal, round, reactive to light and accommodation (PERRL). External ear without lesion or discharge. Straight, nares patient, mucosa pink, no discharge. No thyroid nodule appreciated. No cervical lymphadenopathy. Cardio: Normal Rate and Rhythm with S1 and S2 heart sounds. No murmurs or extra heart sounds auscultated. No bruits on carotid auscultation. No peripheral edema or cyanosis. Lungs: Symmetric with good expansion. Chest and back non-tender. Breath sounds vesicular without crackles, wheezing or rhonchi Abdomen: Non-tender, Non-distended, Normal Reactive Bowel Sounds Neuro: Alert, cooperative, oriented to person, place, and time. Speech clear. CN grossly intact. Upper motor strength 5/5 and Lower motor strength 5/5. Sensation intact. Discharge Plan Plan Patient Disposition: HOME (Self Care) Patient condition on transfer: Stable Care Plan Goals: Instructions: -Tamsulosin for kidney stone -Please follow up with urology as outpatient -Please follow up with your primary care provider within one week of discharge -If your symptoms worsen,please seek immediate medical attention and return to your nearest emergency room -If you do not have a primary care provider, you may follow up at the [facility] at [facility] [address], [place] [address], Prescriptions/Referrals Prescriptions/Med Rec: New tamsulosin 0.4 mg Capsule 0.4 mg PO QDAY 30 Days Qty: 30 1RF lidocaine [Lidocaine Pain Relief] 4 % adhesive patch,medicated 1 patch topical QDAY PRN (Reason: pain) Qty: 5 0RF Continued carbidopa-levodopa 25-100 mg tablet extended release 1 tab PO HS Patient Comments: TAKE 1 TABLET BY MOUTH DAILY AT BEDTIME carbidopa-levodopa 25-100 mg tablet 1.5 tab PO TID Rx Instructions: Take 1.5 tab po at 1100, 1400, 1700 atenolol 25 mg tablet 25 mg PO Q24H Patient Comments: TAKE 1 TABLET BY MOUTH EVERY DAY methocarbamol 500 mg tablet 1,000 mg PO HS Patient Comments: TAKE 2 TABLET BY MOUTH AT NIGHT NEEDED FOR NECK STIFFNESS omeprazole magnesium [Prilosec OTC] 20 mg tablet,delayed release (DR/EC) 20 mg PO QDAY Discontinued atenolol [Tenormin] 50 MG tablet 50 mg PO QAM Qty: 0 Referrals: No Primary/Family,Physician [Primary Care Provider] - Patient/Caregiver Discharge Instructions Other Discharge Activity Instructions:: Instructions: -Tamsulosin for kidney stone -Please follow up with urology as outpatient -Please follow up with your primary care provider within one week of discharge -If your symptoms worsen,please seek immediate medical attention and return to your nearest emergency room -If you do not have a primary care provider, you may follow up at the [facility] at [address], [place] [address], Education Materials: Abdominal Pain, ED Kidney Stone Undescended No ... Print Language: Lithuanian Stand Alone Forms: [employer] Award Info., Patient Portal Info Letter, Work/Release Restrictions Discharge Order Discharge Orders: Discharge (Routine); Ordered 01/10/25 Ordered By: Aleena Cuba Quality Discharge Quality Measures VTE prophylaxis MD Attestestation MD Attestation I have discussed and was present for the essential components of the history, physical examination, diagnosis, and treatment plan with the resident. I agree with the patient's care as documented by the resident and amended herein by me. Art Stafford MD. Although this document has been carefully reviewed, there may still be some phonetic and other typographical errors. These errors are purely grammatical due to imperfections in the software program and should not be construed in any way to compromise the substance of the patient's medical care during this visit.
[2025-01-10 16:00] VITALS: BP 141/72; PULSE 75; RESP 19; TEMP 36.4; O2SAT 95
--- NOTE | 2025-01-10 16:16 | PC.SS ---
SS met with pt bedside using all precautions, SS provided medicare information; pt alert and orientited x4 SS spoke with Aurora, spouse, confirmed pt discharging and plan for [facility]
--- NOTE | 2025-01-10 18:02 | PC.CC ---
Addendum entered by Bee Reis RN 01/10/25 18:33: need to send DC summary when available Addendum entered by Bee Reis RN 01/10/25 18:28: [facility] accepted and booked. SOC monday01/13/25 Original Note: Received call from CECIL Riley and informed pt is follow by [facility]. HH ref sent to [facility] for [facility]. awaiting response.
--- NOTE | 2025-01-11 06:57 | PC.CC ---
Patient is booked with [facility], [facility] will be 01/13
== END 2025-01-10 17:43 | disposition home or self-care (01) ==
LOC: SERX 18:00 → SERHOLD 19:35 → S3SX 22:07 → SERHOLD 01-09 06:03
PROVIDERS: Admitting Provider Student in an Organized Health Care Education/Training Program; Emergency Provider Emergency Medicine; Visit Provider Internal Medicine
DX: N13.2 Hydronephrosis with renal and ureteral calculous obstruction (principal); G20.A1 Parkinson's disease without dyskinesia, without mention of fluctuations; N13.8 Other obstructive and reflux uropathy; N18.2 Chronic kidney disease, stage 2 (mild); K85.90 Acute pancreatitis without necrosis or infection, unspecified; J96.01 Acute respiratory failure with hypoxia; I12.9 Hypertensive chronic kidney disease with stage 1 through stage 4 chronic kidney disease, or unspecified chronic kidney disease; J18.9 Pneumonia, unspecified organism; N40.1 Benign prostatic hyperplasia with lower urinary tract symptoms; Z51.5 Encounter for palliative care; Z74.01 Bed confinement status; Z87.442 Personal history of urinary calculi; Z98.2 Presence of cerebrospinal fluid drainage device; Z01.810 Encounter for preprocedural cardiovascular examination
CPT/HCPCS: 36415; 71045; 74177; 80053; 80061; 81001; 82150; 83036; 83690; 83735; 83880; 84100; 84484; 85025; 85610; 85730; 87811; 93005; 96361; 96365; 96366; 96375; 99285; A4649; G0378; J0360; J0696; J2405; J2543; J3475; J7030; J7120; Q9967; S8037; 74181; A9270

== ENCOUNTER → 2025-02-18 | Outpatient (CLI) | payer MEDICARE, SELFPAY ==
[2025-02-18 10:37] LABS: Collection Type, Urine Clean Catch
[2025-02-18 11:54] LABS: Bilirubin,Urine Negative (Negative); Blood,Urine 3+ (Negative); Clarity,Urine Clear (Clear/Hazy); Color,Urine Yellow (Lt Yel-Yel); Glucose, Urine Negative (Negative); Ketones,Urine 1+ (Negative); Leukocyte Esterase,Urine Positive (Negative); Nitrite,Urine Negative (Negative); PH,Urine 6.0 (5.0-7.0); Protein,Urine 2+ (Neg - Trace); RBC,Urine 96 /hpf (0-3); Specific Gravity,Urine 1.028 (1.001-1.035); Squamous Epithelial Cell,Urine < 1 /hpf (0-5); Urobilinogen,Urine Negative mg/dL (0.0-1.0); WBC,Urine 64 /hpf (0-5)
[2025-02-18 12:28] LABS: Culture Indicated,Urine Yes
== END | disposition home or self-care (01) ==
PROVIDERS: Referring Provider Family Medicine; Visit Provider Family Medicine
DX: R82.998 Other abnormal findings in urine (principal); R82.90 Unspecified abnormal findings in urine
CPT/HCPCS: 81001; 87086

== ENCOUNTER 2025-02-23 09:28 | Emergency (ER) | payer MEDICARE, SELFPAY ==
--- NOTE | 2025-02-23 09:34 | XR_ITS ---
Examination: AP chest single view Technique one AP portable upright chest single view Date and time: February 23, 2025 0948 hrs., Comparison January 08, 2025 Indications: Shortness of breath today. Findings: Moderate enlargement left ventricle. Mild vascular congestion. Mild elevation right hemidiaphragm. No lobar pneumonia or pulmonary edema. Impression: Moderate enlargement left ventricle. No pneumonia or pulmonary edema.
--- NOTE | 2025-02-23 09:34 | EDNOTE_ITS ---
<Statement entered by Philly Amaya MD - 03/10/25 06:30> I, Philly Amaya MD, have reviewed the history, exam, and assessment of the patient. I have evaluated the patient independently and agree with the plan of care documented by [ ]. All diagnostic studies were reviewed and discussed. I confirm the diagnosis as documented by the Resident. I was present during the Medical Decision Making for this patient. The patient's plan of care was created between myself and the Resident and consistent with our discussion of the patient's case. 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 Patient states that he was in his usual state of health and today he just woke up very weak. Per EMS yesterday he had a episode of altered mental status morning was more confused than normal, but self resolved. Otherwise patient has no other complaints at this time. States he also has a heartburn sensation. Denies having any sick contacts, denies having shortness of breath, abdominal pain, nausea, vomiting, burning sensation urination, or any changes in bowel movement. Denies smoking, drugs, alcohol Related Data Home Medications ?Medication ?Instructions ?Recorded ?Confirmed atenolol 25 mg tablet 25 mg PO Q24H 01/08/2501/08 carbidopa 25 mg-levodopa 100 mg 1.5 tab PO TID tremmer s 01/08/25 01/08/25 tablet carbidopa ER 25 mg-levodopa 100 mg 1 tab PO HS 5 01/08/25 tablet,extended release methocarbamol 500 mg tablet 1,000 mg PO HS 01/08/25 omeprazole magnesium 20 mg 20 mg PO QDAY 01/08/2509/03 tablet,delayed release (Prilosec OTC) Previous Rx's ?Medication ?Instructions ?Recorded lidocaine 4 % topical patch 1 patch topical QDAY PRN p ain #5 ea 01/10/25 (Lidocaine Pain Relief) tamsulosin 0.4 mg capsule 0.4 mg PO QDAY kidney stone 30 01/10/25 days #30 caps Allergies Allergy/AdvReac Type Severity Reaction Status Date / Time No Known Allergies Allergy Unverified 01/08/25 20:50 Review of Systems Review of Systems Systems Reviewed: All systems reviewed, normal except as documented Past Medical History Past Medical History NEUROLOGIC: Positive Neurological Disorders CARDIAC: Positive Hypertension; Negative Cardiac Disorders or Congestive Heart Failure RESPIRATORY: Positive Asthma; Negative Chronic Obstructive Pulmonary Disease (COPD) GENITOURINARY: Positive Renal Disease ENDOCRINE: Negative Diabetes Mellitus Type 1 or Diabetes Mellitus Type 2 HEMATOLOGIC: Negative Sickle Cell Disease Social History SMOKING STATUS: Never smoker SUBSTANCE USE: does not use ED Exam Narrative Physical exam: Gen: A&O X 3, NAD, frail elderly HEENT: NCAT, EOMI, Pupils reactive JUSTICE, not icteric. External ears normal. No rhinorrhea. Moist mucous membranes. Neck: Supple, full range of motion, no observable masses, No meningeal sign. Lungs: No Respiratory distress, clear bilateral. CV: RRR, no murmurs. Abdomen: Soft, nondistended, nontender, No rebound tenderness. MSK: No joint swelling, no redness, peripheral pulses presents, 1+ JUSTICE pedal edema. Skin: No rashes, petechiae, lesions. Neuro: No focal neurological deficits appreciated, sensory and motor intact. Psych: Cooperative, appropriate mood and effect. Course Quality Measures none Orders Category Date Time Status Sapphire Stylus Grinder Q4H START 00 Care 02/23/25 09:34 Active Continuous Pulse Oximetry NOW Care 02/23/25 09:34 Completed EKG (ED ONLY) *Do not use* NOW Care 02/23/25 09:41 Completed Orthostatic Vitals NOW Care 02/23/25 10:33 Active CXRP [XR chest 1V portable] Stat Exams 02/23/25 09:34 Completed EKG (ED Only) Stat Exams 02/23/25 09:41 Draft CBC [CBC] Stat Lab 02/23/25 09:40 Completed CMP [Comprehensive Metabolic Panel] Stat Lab 02/23/25 09:40 Completed Drug Screen,Urine Stat Lab 02/23/25 11:05 Completed Lactic Acid [Lactate (Lactic Acid)] Stat Lab 02/23/25 09:40 Completed Magnesium Stat Lab 02/23/25 09:40 Completed Procalcitonin Stat Lab 02/23/25 09:40 Completed Troponin I Stat Lab 02/23/25 09:40 Completed UA [Urinalysis] Stat Lab 02/23/25 11:05 Completed Urine Culture Stat Lab 02/23/25 12:41 Ordered Sodium Chloride 0.9% 500 ml [Ns] 500 ml Med 02/23/25 10:29 Discontinued IV 250 mls/hr Vital Signs Vital signs: Vital Signs Temperature 98.5 F 02/23/25 09:40 Pulse Rate 106 H 02/23/25 09:40 Respiratory Rate 18 02/23/25 09:40 Blood Pressure 182/98 H 02/23/25 09:40 Pulse Oximetry (%) 93 L 02/23/25 09:40 Oxygen Delivery Method Room Air 02/23/25 09:40 Discharge Plan Plan Patient Disposition: HOME (Self Care) Prescriptions/Referrals Prescriptions/Med Rec: No Action carbidopa-levodopa 25-100 mg tablet extended release 1 tab PO HS Patient Comments: TAKE 1 TABLET BY MOUTH DAILY AT BEDTIME carbidopa-levodopa 25-100 mg tablet 1.5 tab PO TID Rx Instructions: Take 1.5 tab po at 1100, 1400, 1700 atenolol 25 mg tablet 25 mg PO Q24H Patient Comments: TAKE 1 TABLET BY MOUTH EVERY DAY methocarbamol 500 mg tablet 1,000 mg PO HS Patient Comments: TAKE 2 TABLET BY MOUTH AT NIGHT NEEDED FOR NECK STIFFNESS omeprazole magnesium [Prilosec OTC] 20 mg tablet,delayed release (DR/EC) 20 mg PO QDAY tamsulosin 0.4 mg Capsule 0.4 mg PO QDAY 30 Days Qty: 30 1RF lidocaine [Lidocaine Pain Relief] 4 % adhesive patch,medicated 1 patch topical QDAY PRN (Reason: pain) Qty: 5 0RF Referrals: Mary Ann Ham MD [Primary Care Provider] - In 1 week Problem List Clinical Impression: Generalized weakness Patient/Caregiver Discharge Instructions Other Activity Instructions:: Follow-up primary care physician within 1 to 2 days Follow-up primary care physician for work up of microscopic hematuria seen in the UA. Recommend maintaining good oral hydration with at least 2 L/day. Come back to the ER if symptoms persist or worsen. Education Materials: ED Weakness (Uncertain Cause) Print Language: Chinese Stand Alone Forms: Maric[employer] Award Info., Patient Portal Info Letter MDM Narrative MDM hospital course: Patient was seen and assessed by myself upon arrival. Diagnostic imaging and labs were ordered. Chest x-ray showed no pulmonary edema or pneumonia, but did show left ventricle enlargement. Labs otherwise look fairly unremarkable, patient appears to be mildly hemoconcentrated given elevated hemoglobin at 17.5. Orthostatic vitals were positive therefore we will give 500 mL of IV fluids for now. At this time patient is stable enough to be discharged home. Will need follow- up with primary care physician within 1 to 2 days. Case disclosed with Attending Dr. Jose Luis Jade PGY2 Disclaimer: Even though this this note was dictated by speech recognition and even though it was carefully revised there may still be minor errors in distance learning administrator due to voice recognition software. Medication Administration(s) Medication Administration History Discontinued Medications Sodium Chloride (Ns) 500 mls @ 250 mls/hr IV .Q2H ONE Stop: 02/23/25 12:28 Last Admin: 02/23/25 12:00 Dose: 250 mls/hr Documented By: OBINNA
[2025-02-23 09:40] VITALS: BP 182/98; PULSE 106; PULSE 108; RESP 18; TEMP 36.9; O2SAT 93; O2SAT 94
--- NOTE | 2025-02-23 09:41 | EKG_ITS ---
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
[2025-02-23 09:53] LABS: Lactate (Lactic Acid) 1.2 mMol/L (0.4-2.0)
[2025-02-23 10:02] LABS: Basophils # (Auto) 0.1 Thou/mm3 (0.0-0.2); Basophils % (Auto) 1 % (0-2.5); Eosinophils # (Auto) 0.2 Thou/mm3 (0.0-0.5); Eosinophils % (Auto) 3 % (0-10); Hematocrit 53.0 % (41.0-53.0); Hemoglobin 17.5 g/dL (13.5-16.0); Immature Granulocytes Auto 0.04 Thou/mm3 (0.00-0.00); Lymphocytes # (Auto) 1.6 Thou/mm3 (1.0-4.8); Lymphocytes % (Auto) 22 % (10-50); Mean Corpuscular HGB Conc 33.0 g/dl (31.0-37.0); Mean Corpuscular Hemoglobin 29.5 pg (25.0-35.0); Mean Corpuscular Volume 89 fL (80-100); Monocytes # (Auto) 0.5 Thou/mm3 (0.0-0.8); Monocytes % (Auto) 7 % (0-12); Neutrophils # (Auto) 4.7 Thou/mm3 (1.8-7.7); Neutrophils % (Auto) 66 % (37-80); Nucleated Red Blood Cell # 0.00 Thou/mm3 (0.00-0.00); Nucleated Red Blood Cell % 0 /100 WBC (0); Platelet Count 208 Thou/mm3 (140-440); RDW Standard Deviation 44.9 fL (35.1-43.9); Red Blood Count 5.93 Miln/mm3 (4.50-5.90); White Blood Count 7.1 Thou/mm3 (3.8-10.6)
[2025-02-23 10:28] LABS: Alanine Aminotransferase < 7 U/L (10-49); Albumin, Serum 4.2 gm/dL (3.4-4.8); Albumin/Globulin Ratio 1.7 (1.2-2.2); Alkaline Phosphatase 116 U/L (46-116); Anion Gap 11 (7-16); Aspartate Amino Transferase 16 U/L (0-34); BUN/Creatinine Ratio 21 Ratio (12-20); Bilirubin,Total 0.7 mg/dL (0.3-1.2); Blood Urea Nitrogen 21 mg/dL (9-23); Calcium 9.8 mg/dL (8.3-10.6); Calcium (Corrected) 9.8 mg/dL (8.5-10.1); Carbon Dioxide 24.7 mMol/L (20.0-31.0); Chloride 108 mMol/L (98-107); Creatinine (Component) 1.0 mg/dL (0.6-1.3); Globulin 2.5 gm/dL (2.3-3.5); Glucose 110 mg/dL (74-106); Magnesium 1.6 mg/dL (1.6-2.6); Osmolality,Calculated 290 (275-295); Potassium 3.9 mMol/L (3.4-5.1); Procalcitonin 0.05 ng/ml (0.0-0.49); Sodium 144 mMol/L (136-145); Total Protein 6.7 gm/dL (5.7-8.2); Troponin I < 0.020 ng/mL (0.0-0.045); eGFR > 60 See Note
[2025-02-23 10:30] VITALS: BP 169/86; PULSE 84; RESP 16; O2SAT 93
[2025-02-23 11:46] LABS: Collection Type, Urine Voided; Squamous Epithelial Cell,Urine 0 /hpf (0-5)
[2025-02-23 11:57] VITALS: BP 173/84; BP 182/77; BP 187/84; PULSE 74; PULSE 76; PULSE 81
[2025-02-23 11:59] VITALS: PULSE 74
[2025-02-23] MEDS: SODIUM CHLORIDE 0.9% 500 ML 500 ML 250 ML IV (12:00)
[2025-02-23 12:04] VITALS: BP 167/80; PULSE 71; RESP 18; O2SAT 95
[2025-02-23 12:13] LABS: Bilirubin,Urine Negative (Negative); Blood,Urine 2+ (Negative); Color,Urine Yellow (Lt Yel-Yel); Glucose, Urine Negative (Negative); Hyaline Casts,Urine < 1 /hpf (0-1); Ketones,Urine Negative (Negative); Leukocyte Esterase,Urine Positive (Negative); Nitrite,Urine Negative (Negative); PH,Urine 6.5 (5.0-7.0); Protein,Urine 1+ (Neg - Trace); RBC,Urine 127 /hpf (0-3); Specific Gravity,Urine 1.017 (1.001-1.035); Urobilinogen,Urine Negative mg/dL (0.0-1.0); WBC,Urine 16 /hpf (0-5)
[2025-02-23 12:18] LABS: Amphetamine/Methamp Scrn,U Negative (Negative); Barbiturate Screen,Urine Negative (Negative); Benzodiazepines Screen,Urine Negative (Negative); Benzoylecgonine Screen, Ur Negative (Negative); Fentanyl Screen,Urine Negative (Negative); Opiate Screen,Urine Negative (Negative); THC Screen,Urine Negative (Negative)
[2025-02-23 12:34] LABS: Clarity,Urine Hazy (Clear/Hazy)
[2025-02-23 13:23] VITALS: BP 156/71; PULSE 63; RESP 16; TEMP 36.9; O2SAT 95
== END 2025-02-23 13:50 | disposition home or self-care (01) ==
PROVIDERS: Emergency Provider Emergency Medicine; PCP Family Medicine
DX: R53.1 Weakness (principal); G20.A1 Parkinson's disease without dyskinesia, without mention of fluctuations; I10 Essential (primary) hypertension; J45.909 Unspecified asthma, uncomplicated; Z79.899 Other long term (current) drug therapy
CPT/HCPCS: 36415; 71045; 80053; 80307; 81001; 83605; 83735; 84145; 84484; 85025; 87086; 93005; 96360; 99283; J7999

== ENCOUNTER 2025-06-27 17:36 | Emergency (ER) | payer MEDICARE, SELFPAY ==
[2025-06-27 17:39] VITALS: PULSE 86; O2SAT 97; BMI 27.3
[2025-06-27 17:46] VITALS: BP 122/71; PULSE 94; RESP 17; TEMP 36.6; O2SAT 95
--- NOTE | 2025-06-27 18:26 | XR_ITS ---
EXAMINATION: AP chest single view TECHNIQUE: AP portable upright chest single view Date and time: June 27, 2025, 1829 hours, comparison February 23, 2025 INDICATIONS: Chest pain today FINDINGS: Mild prominence left ventricle Suspicious for pneumonia left base retrocardiac Moderate vascular congestion Atelectasis in the right upper lobe Reduced inspiratory effort Prominent osteopenia IMPRESSION:: Suspicious for pneumonia left base
--- NOTE | 2025-06-27 18:26 | EKG_ITS ---
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
--- NOTE | 2025-06-27 18:27 | PD.EDSYNC ---
ED Syncope RME/HPI General Chief Complaint: Syncope / Near Syncope Stated Complaint: SYNCOPE Time Seen by Provider: 06/27/25 18:15 Arrival date/time: 06/27/25 17:36 RME / HPI RME / HPI narrative: DR. 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 EMS was summoned to home by due to patient fainting . Patient has no recollection of event. Denies vomiting, pain, shortness of breath and chest pain. Patient is cared for at home by his . No other complaints. Related Data Home Medications ?Medication ?Instructions ?Recorded ?Confirmed atenolol 25 mg tablet 25 mg PO Q24H 01/08/25 04/10/25 carbidopa 25 mg-levodopa 100 mg 1.5 tab PO TID tremmers 01/08/25 04/10/25 tablet carbidopa ER 25 mg-levodopa 100 mg 1 tab PO HS 01/08/25 04/10/25 tablet,extended release methocarbamol 500 mg tablet 1,000 mg PO HS 01/08/25 04/10/25 omeprazole magnesium 20 mg 20 mg PO QDAY 01/08/25 04/10/25 tablet,delayed release (Prilosec OTC) Previous Rx's ?Medication ?Instructions ?Recorded lidocaine 4 % topical patch 1 patch topical QDAY PRN pain #5 ea 01/10/25 (Lidocaine Pain Relief) tamsulosin 0.4 mg capsule 0.4 mg PO QDAY kidney stone 30 01/10/25 days #30 caps Allergies Allergy/AdvReac Type Severity Reaction Status Date / Time No Known Allergies Allergy Verified 06/27/25 17:39 Review of Systems Review of Systems Systems Reviewed: All systems reviewed, normal except as documented Past Medical History Past Medical History NEUROLOGIC: Positive Neurological Disorders and Parkinson's Disease CARDIAC: Positive Hypertension RESPIRATORY: Positive Asthma GENITOURINARY: Positive Renal Disease ED Exam Narrative Physical exam: Generally patient is alert elderly appearing male in no obvious distress but chronically ill-appearing. Heart regular rate and rhythm, lungs clear to auscultation equal bilaterally, abdomen soft and nontender, neurologic exam shows the patient to be alert and oriented to name and to place as well as to month. 4, skin is cool pale and dry Course Quality Measures none Orders Category Date Time Status EKG (ED ONLY) *Do not use* NOW Care 06/27/25 18:26 Completed EKG (ED Only) Stat Exams 06/27/25 18:26 Draft XR chest 1V portable Stat Exams 06/27/25 18:26 Completed BNP [B-Type Natriuretic Peptide] Stat Lab 06/27/25 18:40 Completed CBC Stat Lab 06/27/25 18:40 Completed CMP [Comprehensive Metabolic Panel] Stat Lab 06/27/25 18:40 Completed D-Dimer Stat Lab 06/27/25 18:40 Completed Magnesium Stat Lab 06/27/25 18:40 Completed Troponin I Stat Lab 06/27/25 18:40 Completed UA [Urinalysis] Stat Lab 06/27/25 18:28 Ordered Sodium Chloride 0.9% 500 ml [Ns] 500 ml Med 06/27/25 18:28 Discontinued IV 999 mls/hr Vital Signs Vital signs: Vital Signs Temperature 97.8 F 06/27/25 17:46 Pulse Rate 94 06/27/25 17:46 Respiratory Rate 17 06/27/25 17:46 Blood Pressure 122/71 06/27/25 17:46 Pulse Oximetry (%) 95 06/27/25 17:46 Oxygen Delivery Method Room Air 06/27/25 17:46 Syncope MDM Narrative MDM Narrative:: Scribe Attestation: Lexie Masters am scribing for and in the presence of Dr. Alvarado. Provider Notation: Although this document has been carefully reviewed, there may still be some phonetic and other typographical errors. These errors are purely grammatical due to imperfections in the software program and should not be construed in any way to compromise the substance of the patient's medical care during this visit. Patient was hydrated with 500 cc of IV normal saline. There was no electrolyte abnormality. Troponin was not elevated. Chest x-ray shows poor inspiratory effort but no acute disease process. Patient remained in normal sinus rhythm on the monitor throughout the ER stay. D-dimer was not elevated. O2 saturation is 93 to 94% on room air. EKG obtained at 7:09 PM shows normal sinus rhythm at a rate of 93 without ischemic change. There was a PAC. Patient does not appear to have cardiac dysrhythmia as he was on the monitor for hours here in the emergency room without event. Patient is stable for discharge. Patient feels comfortable going home. Patient will be discharged in stable condition. Patient data External records reviewed:: [facility] previous records (Reviewed prior ED records from 01/08/25. Patient was seen for Abdominal pain.) and EMS form Clinical information provided by:: patient and EMS Social determinants that could affect healthcare access:: none Patient has the following chronic illnesses:: Parkinson's Disease, HTN How is presenting disease/condition affected by chronic disease/condition?: exacerbated by Evaluation data The following diagnostics were reviewed and interpreted by me:: lab results, radiology exam(s) and EKG tracing(s) Lab and/or radiology exams considered but not ordered:: None Interpretation Summary: RADIOLOGY Chest X-Ray: FINDINGS: Mild prominence left ventricle Suspicious for pneumonia left base retrocardiac Moderate vascular congestion Atelectasis in the right upper lobe Reduced inspiratory effort Prominent osteopenia IMPRESSION: Suspicious for pneumonia left base Medications / Prescriptions Medications or Prescriptions considered but not ordered:: None Medication administrations:: Medication Administration History Discontinued Medications Sodium Chloride (Ns) 500 mls @ 999 mls/hr IV .Q31M ONE Stop: 06/27/25 18:58 Last Admin: 06/27/25 19:44 Dose: 999 mls/hr Documented By: BRITTON See above if any. Consultations Consultation(s) initiated? (list below): No Diagnosis Syncope Differential Diagnosis: syncope due to orthostatic hypotension, vasovagal syncope, complete atrioventricular block, subarachnoid hemorrhage, pulmonary embolism and dehydration Most likely diagnosis given after review of the tests above:: None Admission Indicated Admission indicated?: not indicated Admission Request Was there a request for admission?: No Disposition Plan Disposition Plan: Discharge Discharge Attestation Discharge Attestation: The patient and all family members were given an opportunity to ask questions and understood the discharge instructions. Discharge instructions specifically effects, indications for sooner follow up or return to the emergency department, and the expected course of current diagnosis. Patient condition: Stable Discharge Plan Plan Patient Disposition: HOME (Self Care) Prescriptions/Referrals Prescriptions/Med Rec: No Action carbidopa-levodopa 25-100 mg tablet extended release 1 tab PO HS Patient Comments: TAKE 1 TABLET BY MOUTH DAILY AT BEDTIME carbidopa-levodopa 25-100 mg tablet 1.5 tab PO TID Rx Instructions: Take 1.5 tab po at 1100, 1400, 1700 atenolol 25 mg tablet 25 mg PO Q24H Patient Comments: TAKE 1 TABLET BY MOUTH EVERY DAY methocarbamol 500 mg tablet 1,000 mg PO HS Patient Comments: TAKE 2 TABLET BY MOUTH AT NIGHT NEEDED FOR NECK STIFFNESS omeprazole magnesium [Prilosec OTC] 20 mg tablet,delayed release (DR/EC) 20 mg PO QDAY tamsulosin 0.4 mg Capsule 0.4 mg PO QDAY 30 Days Qty: 30 1RF lidocaine [Lidocaine Pain Relief] 4 % adhesive patch,medicated 1 patch topical QDAY PRN (Reason: pain) Qty: 5 0RF Referrals: No Primary/Family,Physician [Primary Care Provider] - In 1 week Problem List Clinical Impression: Near syncope Patient/Caregiver Discharge Instructions Education Materials: ED Near-Fainting, Uncertain Cause Additional Instructions: There was no blood or heart abnormality to explain the near fainting event. Patient is stable for discharge. Follow-up with your doctor. Return to ER as needed or if condition worsens. Print Language: Cuban Stand Alone Forms: Maricarmen Award Info., Patient Portal Info Letter
[2025-06-27 18:59] LABS: Basophils # (Auto) 0.0 Thou/mm3 (0.0-0.2); Basophils % (Auto) 1 % (0-2.5); Eosinophils # (Auto) 0.1 Thou/mm3 (0.0-0.5); Eosinophils % (Auto) 1 % (0-10); Hematocrit 46.9 % (41.0-53.0); Hemoglobin 16.1 g/dL (13.5-16.0); Immature Granulocytes Auto 0.05 Thou/mm3 (0.00-0.00); Lymphocytes # (Auto) 0.8 Thou/mm3 (1.0-4.8); Lymphocytes % (Auto) 14 % (10-50); Mean Corpuscular HGB Conc 34.3 g/dl (31.0-37.0); Mean Corpuscular Hemoglobin 30.4 pg (25.0-35.0); Mean Corpuscular Volume 89 fL (80-100); Monocytes # (Auto) 0.7 Thou/mm3 (0.0-0.8); Monocytes % (Auto) 14 % (0-12); Neutrophils # (Auto) 3.7 Thou/mm3 (1.8-7.7); Neutrophils % (Auto) 69 % (37-80); Nucleated Red Blood Cell # 0.00 Thou/mm3 (0.00-0.00); Nucleated Red Blood Cell % 0 /100 WBC (0); Platelet Count 155 Thou/mm3 (140-440); RDW Standard Deviation 45.8 fL (35.1-43.9); Red Blood Count 5.30 Miln/mm3 (4.50-5.90); White Blood Count 5.4 Thou/mm3 (3.8-10.6)
[2025-06-27 19:08] VITALS: BP 128/66; PULSE 94; RESP 17; TEMP 36.7; O2SAT 92
[2025-06-27 19:17] LABS: B-Type Natriuretic Peptide < 20 pg/mL (0-100)
[2025-06-27 19:29] LABS: Alanine Aminotransferase < 7 U/L (10-49); Albumin, Serum 4.1 gm/dL (3.4-4.8); Albumin/Globulin Ratio 1.6 (1.2-2.2); Alkaline Phosphatase 72 U/L (46-116); Anion Gap 10 (7-16); Aspartate Amino Transferase 25 U/L (0-34); BUN/Creatinine Ratio 31 Ratio (12-20); Bilirubin,Total 0.5 mg/dL (0.3-1.2); Blood Urea Nitrogen 31 mg/dL (9-23); Calcium 8.4 mg/dL (8.3-10.6); Calcium (Corrected) 8.4 mg/dL (8.5-10.1); Carbon Dioxide 24.8 mMol/L (20.0-31.0); Chloride 109 mMol/L (98-107); Creatinine (Component) 1.0 mg/dL (0.6-1.3); Estimated Creatinine Clearance 59.9 mL/min (>60); Globulin 2.6 gm/dL (2.3-3.5); Glucose 132 mg/dL (74-106); Magnesium 1.7 mg/dL (1.6-2.6); Osmolality,Calculated 295 (275-295); Potassium 3.8 mMol/L (3.4-5.1); Sodium 144 mMol/L (136-145); Total Protein 6.7 gm/dL (5.7-8.2); Troponin I < 0.020 ng/mL (0.0-0.045); eGFR > 60 See Note
[2025-06-27] MEDS: SODIUM CHLORIDE 0.9% 500 ML 500 ML 999 ML IV (19:44)
[2025-06-27 19:55] LABS: D-Dimer 451 ng/mL (<600)
[2025-06-27 20:22] LABS: Collection Type, Urine Voided; Squamous Epithelial Cell,Urine 0 /hpf (0-5)
[2025-06-27 20:30] LABS: Bacteria,Urine Rare; Bilirubin,Urine Negative (Negative); Blood,Urine 2+ (Negative); Calcium Oxalate Crystals,Urine 1+; Clarity,Urine Turbid (Clear/Hazy); Color,Urine Yellow (Lt Yel-Yel); Glucose, Urine Negative (Negative); Hyaline Casts,Urine < 1 /hpf (0-1); Ketones,Urine 1+ (Negative); Leukocyte Esterase,Urine Positive (Negative); Nitrite,Urine Negative (Negative); PH,Urine 6.0 (5.0-7.0); Protein,Urine 2+ (Neg - Trace); RBC,Urine 82 /hpf (0-3); Specific Gravity,Urine 1.029 (1.001-1.035); Urobilinogen,Urine 2.0 mg/dL (0.0-1.0); WBC,Urine 54 /hpf (0-5)
--- NOTE | 2025-06-27 21:15 | PC.NURSE ---
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
[2025-06-27 22:28] VITALS: BP 150/98; PULSE 99; RESP 18; TEMP 36.7; O2SAT 95
== END 2025-06-27 23:11 | disposition home or self-care (01) ==
PROVIDERS: Emergency Provider Emergency Medicine
DX: R55 Syncope and collapse (principal); I49.40 Unspecified premature depolarization; R07.9 Chest pain, unspecified; I10 Essential (primary) hypertension
CPT/HCPCS: 36415; 71045; 80053; 81001; 83735; 83880; 84484; 85025; 85379; 93005; 96360; 99283; J7999